=== PATIENT | female | born 1985 | race Caucasian/White ===

== ENCOUNTER 2020-08-14 15:57 | Emergency (ER) | payer OTHER ==
[~2020-08-14] VITALS: Ht 175.3 cm; Wt 54.4 kg
--- NOTE | 2020-08-14 16:17 | NUR ---
feels weak and dizzy [place]
--- NOTE | 2020-08-14 16:18 | NUR ---
no neuro deficit noted
[2020-08-14 16:54] LABS: BASOPHILS % (AUTO) 0.2 % (0.0-2.0); EOSINOPHILS % (AUTO) 1.9 % (0.0-6.0); HEMATOCRIT 39 % (33-45); LYMPHOCYTES # (AUTO) 1.1 /CMM (0.8-4.8); LYMPHOCYTES % (AUTO) 17.7 % (20.0-44.0); MEAN CORPUSCULAR HGB CONC 34 g/dl (31.0-36.0); MEAN CORPUSCULAR VOLUME 89 fL (82-100); MONOCYTES # (AUTO) 0.3 /CMM (0.1-1.30); MONOCYTES % (AUTO) 5.7 % (2.0-12.0); NEUTROPHILS # (AUTO) 4.4 /CMM (1.8-8.9); NEUTROPHILS % (AUTO) 74.5 % (43.0-81.0); PLATELET COUNT (AUTO) 193 /CMM (150-450); RED BLOOD CELL COUNT(AUTO) 4.36 MIL/uL (4.0-5.2); WHITE BLOOD COUNT (AUTO) 5.9 K/uL (4.3-11.0)
[2020-08-14] MEDS ORDERED: IV NS 0.9% 1,000 ML BAG IV ONE (17:00)
[2020-08-14 17:14] LABS: CREATININE 0.9 mg/dL (0.6-1.3); POTASSIUM 3.8 mmol/L (3.5-5.1)
[2020-08-14 17:20] LABS: ALBUMIN 4.1 g/dL (3.4-5.0); BILIRUBIN,DIRECT 0.2 mg/dL (0.0-0.2); BILIRUBIN,TOTAL 0.8 mg/dL (0.2-1.0); TOTAL PROTEIN, SERUM 7.5 g/dL (6.4-8.2)
--- NOTE | 2020-08-14 17:21 | NUR ---
CALLED [facility], AWAITING MD CALL BACK
[2020-08-14 17:33] LABS: BILIRUBIN,URINE Negative (NEGATIVE); COLOR,URINE YELLOW (YELLOW); LEUKOCYTE ESTERASE ,URINE Negative (NEGATIVE); NITRITE, URINE Negative (NEGATIVE); PH,URINE 8.5 (5.0-8.0); PROTEIN,URINE Negative (NEGATIVE); UGLUCOSE Negative (NEGATIVE); UROBILINOGEN,URINE 0.2 EU/dL (0.2)
[2020-08-14 17:52] LABS: BACTERIA,URINE Rare /HPF (None Seen); RBC,URINE NONE SEEN /HPF (0-2); SQUAMOUS EPITHELIAL CELL,UR Few /HPF (None Seen); WBC,URINE NONE SEEN /HPF (0-3)
--- NOTE | 2020-08-14 18:43 | NUR ---
pt marked for d/c but still awaiting for troponin result which was added.
--- NOTE | 2020-08-14 19:00 | NUR ---
Patient discharged to home in stable condition. Written and verbal after care instructions given. Patient verbalizes understanding of instruction.IV removed. Catheter intact and site benign. Pressure and 4x4 applied to site. No bleeding noted. Pt ambulatory with a steady gait
[2020-08-14 19:08] VITALS: BP 103/71
== END 2020-08-14 19:09 | disposition home or self-care (01) ==
LOC: ER 16:03
DX: R55 Syncope and collapse (principal); I45.4 Nonspecific intraventricular block; F32.9 Major depressive disorder, single episode, unspecified; E11.9 Type 2 diabetes mellitus without complications
CPT/HCPCS: 36415; 71045; 80048; 80076; 81001; 82962 ×2; 83735; 84484; 84703; 85025; 85730; 93005; 96360; 99285; J7030 ×2